=== PATIENT | male | born 1955 | race Caucasian/White ===

== ENCOUNTER 2021-06-28 08:11 | Emergency (ER) | payer BC, OTHER, SELFPAY ==
[2021-06-28 08:21] VITALS: BP 140/79; PULSE 69; RESP 20; TEMP 37.3; O2SAT 99
--- NOTE | 2021-06-28 08:37 | ED.URI ---
HPI - URI/Sore Throat General Chief Complaint: Upper Respiratory Infection Stated Complaint: Cough/Headache Time Seen by Provider: 06/28/21 08:37 Source: patient, RN notes reviewed and old records reviewed Mode of arrival: ambulatory Limitations: no limitations History of Present Illness HPI Narrative: 66-year-old male who presents to [facility] with complaints of persistent cough, runny nose, eyes burning and sinus pressure since Sunday 6-7 days. Patient states that he does have history of seasonal allergies and takes daily Xyzal. He states that he got some Delsym for his cough which didn't help his cough at all. He reports that cough is constant and he feels like he has had some wheezing when he lays down at night, denies any acute dyspnea. He reports that he has had COVID vaccinations and did have Flu shot this year. states he did have COVID in March of 2020.He is concerned that when he tries to eat he coughs so hard that he hasn't been able to eat much.He denies any known fevers, chills or sweats, states that he has yellowish green sinus drainage and he is expectorating yellowish green phlegm. MD elicited complaint: cough, rhinorrhea, nasal congestion and sinus pain Related Data Home Medications Medication Instructions Recorded Confirmed levocetirizine [Xyzal] 5 mg PO DAILY 06/28/21 06/28/21 Allergies Allergy/AdvReac Type Severity Reaction Status Date / Time codeine AdvReac Intermediate Nausea and Verified 06/28/21 08:40 Vomiting ibuprofen AdvReac Intermediate Depression Verified 06/28/21 08:40 Review of Systems Review of Systems: CONSTITUTIONAL: Denies any known fever, chills, or sweats. EYES: Denies visual changes, redness, or discharge. ENT: Positive for rhinorrhea, congestion,no sore throat, or otalgia, sinus pressure CARDIOVASCULAR: Denies chest pain, palpitations, or edema. RESPIRATORY: positive for persistent cough no acute dyspnea. GASTROINTESTINAL: Denies abdominal pain, nausea, vomiting, or diarrhea. GENITOURINARY: Denies dysuria or hematuria. SKIN: Denies rash or itching. MUSCULOSKELETAL: Denies back pain, joint pain, or myalgia. NEUROLOGIC: Denies headache, numbness, or weakness. PSYCHIATRIC: Denies anxiety or depression. All systems reviewed & are unremarkable except as noted in HPI and below PMFSH Past Medical History Medical History (Updated 06/28/21 @ 23:14 by Bernadette Hess NP) COVID-30 March 2020 Hx of migraines Seasonal allergies Social History Social History (Updated 06/28/21 @ 08:49 by Bernadette Hess NP) Smoking status: Never smoker Substance use: never Living arrangements: with family Gender identity (if verbalized by the patient): Male Comments At time of signature, agree with nursing past medical, surgical, social and family history. There is no relevant family history pertinent to the presenting complaint Exam Narrative: GENERAL: Ill-appearing, well-nourished, and in no acute distress. HEAD: Normocephalic, atraumatic. EYES: PERRLA and EOMI. ENT: Nares red with swollen turbinates, yellowish rhinorrhea no epistaxis. Mucous membranes moist.TM's normal with dull light reflex, throat red with no lesions or exudates or tonsil swelling, post nasal drainage present. NECK: Supple.no lymphadenopathy CHEST: Clear to auscultation. No respiratory distress.QUIANA 99% on room air, harsh productive cough HEART: Regular rate and rhythm. No murmur heard. Normal peripheral pulses. ABDOMEN: Soft, nontender, nondistended, normal active bowel sounds. EXTREMITIES: Normal range of motion. No edema. SKIN: Warm, dry, no rash. NEURO: No focal deficits. Alert and oriented x3. Course Course Level of Care: Express Care Visit Vital Signs Vital signs: Vital Signs Temperature 37.3 C 06/28/21 08:21 Pulse Rate 69 06/28/21 08:21 Respiratory Rate 20 06/28/21 08:21 Blood Pressure 140/79 06/28/21 08:21 Pulse Oximetry 99 06/28/21 08:21 Temperature 37.3 C 06/28/21
== END 2021-06-28 08:57 | disposition home or self-care (01) ==
PROVIDERS: Emergency Provider Registered Nurse
DX: J32.9 Chronic sinusitis, unspecified (principal); R05.9 Cough, unspecified; Z86.16 Personal history of COVID-19
CPT/HCPCS: 99203; G0463

== ENCOUNTER 2021-09-29 15:33 | Emergency (ER) | payer BC, OTHER, SELFPAY ==
[2021-09-29 15:40] VITALS: BP 124/88; PULSE 65; RESP 20; TEMP 36.3; O2SAT 100
--- NOTE | 2021-09-29 16:28 | ED.URI ---
HPI - URI/Sore Throat General Chief Complaint: Upper Respiratory Infection Stated Complaint: sore throat/cough Time Seen by Provider: 09/29/21 16:28 History of Present Illness HPI Narrative: 66-year-old male presented for complaint of sore throat and cough which he endorses having for several years intermittently. States this pain is more severe over the last 3 weeks. He denies associated sinus congestion or drainage, shortness of breath, wheezing, nausea, vomiting, fevers or chills. Taking rcka-wju-tfjankh cough syrup. Took a home COVID test that was negative last night. Denies sick contacts. Follows with PCP and ENT for symptoms. Related Data Home Medications Medication Instructions Recorded Confirmed levocetirizine 5 mg tablet (Xyzal) 5 mg PO DAILY 06/28/21 09/29/21 Allergies Allergy/AdvReac Type Severity Reaction Status Date / Time codeine AdvReac Intermediate Nausea and Verified 09/29/21 15:55 Vomiting ibuprofen AdvReac Intermediate Depression Verified 09/29/21 15:55 Review of Systems Review of Systems: CONSTITUTIONAL: Denies body aches, fever, chills, or sweats. EYES: Denies visual changes, redness, or discharge. ENT: Denies rhinorrhea, congestion, or otalgia. CARDIOVASCULAR: Denies chest pain, palpitations, or edema. RESPIRATORY: Denies dyspnea. GASTROINTESTINAL: Denies abdominal pain, nausea, vomiting, or diarrhea. SKIN: Denies rash, itching, or wounds. MUSCULOSKELETAL: Denies back pain, joint pain, or myalgia. NEUROLOGIC: Denies headache PMFSH Past Medical History Medical History COVID-30 March 2020 Hx of migraines Seasonal allergies Social History Social History Smoking status: Never smoker Substance use: never Gender identity (if verbalized by the patient): Male Exam Narrative: GENERAL: well-appearing EYES: conjunctivae clear ENT: Mucous membranes moist. TMs pearly hernandez with normal light reflex bilaterally; no tragal tenderness. Oropharynx erythematous without lesions. Tonsils enlarged and without exudate. No drooling, no hoarseness, no trismus, uvula midline. NECK: Supple. No lymphadenopathy CHEST: Clear to auscultation, breath sounds equal. No respiratory distress, speaks in full sentences. HEART: Regular rate and rhythm. No murmur heard. SKIN: Warm, dry, no rash. NEURO: Alert and oriented x3. Course Course Emergency Course: Patient is aware of diagnosis, understands and agrees to treatment plan. Anticipatory guidance given. Patient agrees to follow-up as directed and is aware of reasons to seek care at the emergency department. Portions of this record may have been created with voice recognition software Level of Care: Express Care Visit Vital Signs Vital signs: Vital Signs Temperature 97.3 F L 09/29/21 15:40 Pulse Rate 65 09/29/21 15:40 Respiratory Rate 20 09/29/21 15:40 Blood Pressure 124/88 09/29/21 15:40 Pulse Oximetry 100 09/29/21 15:40 Oxygen Delivery Room Air 09/29/21 15:40 Temperature 97.3 F L 09/29/21 15:40 Pulse Rate 65 09/29/21 15:40 Respiratory Rate 20 09/29/21 15:40 Blood Pressure 124/88 09/29/21 15:40 Pulse Oximetry 100 09/29/21 15:40 Oxygen Delivery Room Air 09/29/21 15:40 MDM - URI/Sore Throat MDM Narrative Medical decision making narrative: Negative strep result reviewed with pt. Advise supportive treatments. Patient is appropriate for outpatient treatment and follow-up with established pcp and ENT. Differential Diagnosis Differential diagnosis: Likely upper respiratory infection, viral infection, pharyngitis and other (allergic rhinitis) Lab Data Labs: Strep Screen Presumptive Negative *(Reference Range: Negative)* Discharge Plan Discharge Clinical Impression: Pharyngitis Patient Disposition: Home, Self-C
== END 2021-09-29 16:46 | disposition home or self-care (01) ==
PROVIDERS: Emergency Provider Nurse Practitioner Family; PCP Internal Medicine
DX: J02.9 Acute pharyngitis, unspecified (principal); Z86.16 Personal history of COVID-19
CPT/HCPCS: 87081; 87880; 99213; G0463

== ENCOUNTER 2025-02-02 13:38 | Emergency (ER) | payer BC, MEDICARE, OTHER, SELFPAY ==
--- OUTSIDE RECORDS SUMMARY | 2009-07-16 08:40 | XMS_ITS | Continuity of Care Document ---
Author Organization [facility] Address [address] [address] [place] [address] Phone Care Team Providers Care Undercoater Name Role Phone PIERRE Higgins OD, Nicholas Unavailable Unavailab le Allergies, Adverse Reactions, Alerts Substance Reaction Status Criticality ibuprofen Active No Information Medications Medication Instructions Dosage Effective Dates (start - stop) Status Comments Advil Migraine 200 mg Cap take 1 capsule (200MG) by ORAL route every 6 hours as needed 200 MG - Active Procedures Procedure Date Comp eye examination, estab patient Determination of refractive state Advance Directives Directive Yes / No Effective Date File Name Resuscitation Not Answered N/A N/A Life Support Not Answered N/A N/A Intubation Not Answered N/A N/A Antibiotics Not Answered N/A N/A IV Fluid Support Not Answered N/A N/A Tube Feed Not Answered N/A N/A Other Directive N/A N/A WARNING:The information contained in this section is historical and is provided for information only and does not constitute a legal document or any assurance that the information is still accurate. Please verify the information with the bush of the legal document before using it for clinical purposes. Encounters Encounter Description Practice Location Reason(s) For Visit Diagnoses Date Provider Providers Copied on Encounter Eye [facility], [address] [address], [place], [place], [id number], [place] tel:[phone] [place] The patient is here for an ocular health exam. (chief complaint) EYE & VISION EXAMINATIONMYOPIA 7-201 0 Gisela Stokes. [address], [place], [place], [id number] , [place]. tel:[phone] Referring Provider: Kike Bartlett, [address], [place], [address] . tel:[phone] Family History Family Member Type Diagnosis Age At Onset Mother Problem (finding) Maternal history of rhea betes mellitus Payers Payer name Insurance type Covered republican ID Authoriza tion(s) PAL [employer] Retired [id number] Social History Type Description Quantity Date Captured Comments Alcohol Use Details No Caffeine Use Details coffee 2 cups/cans per day Tobacco Use Status No Information Smoking Status No Information Non-Smoking Tobacco Use Details : No Details Available : No Details Available Sex Male Chief Complaint And Reason For Visit From encounter dated '07/16/2009 14:40'. The patient is here for an ocular health exam. (chief complaint) Reason For Referral Reason For Referral No Information History Of Present Illness Encounter Date Complaint History Of Prese nt Illness No Information Functional Status Date Functional Assessmen t No Information Instructions Date Instruction Additional Infor curtis Myopia 367.1 Both ey es - Explained in detail, diagnosis with patient. New glasses and CL's Rx given today. Related to Myopia 367.1 Examination of eyes and vision V72.0 Both eyes - Counseled with pt on conditions. Related to Examination of eyes and vision V72.0 Assessments Type Assessment Date No Information Patient Care Teams Name Effective Dates (start - stop) Status Members No Information
--- OUTSIDE RECORDS SUMMARY | 2009-07-16 08:40 | XMS_ITS | Continuity of Care Document ---
Author Organization [facility] Address [address] [address] [place] [address] Phone Care Team Providers Care Assistant Finance Director Name Role Phone PIERRE Higgins OD, Nicholas [...] Date Provider Providers Copied on Encounter Eye [facility], [address] [address], [place], [place], [id number], [place] tel:[phone] [place] The patient is here for an ocular health exam. (chief complaint) EYE & VISION EXAMINATIONMYOPIA 7-201 0 Gisela Stokes. [address], [place], [place], [id number] , [place]. tel:[phone] Referring Provider: Kike Bartlett, [address], [place], [address] . tel:[phone] Family History Family Member Type Diagnosis Age At Onset Mother Problem (finding) Maternal history of rhea betes mellitus Payers Payer name Insurance type Covered green party ID Authoriza tion(s) PAL Prime Retired [id number] Social History Type Description Quantity Date Captured [...] No Information Instructions Date Instruction Additional Infor matluna Examination of eyes and vision V72.0 Both eyes - Counseled with pt on conditions. Related to Examination of eyes and vision V72.0 Myopia 367.1 Both ey es - Explained in detail, diagnosis with patient. New glasses and CL's Rx given today. Related to Myopia 367.1 Assessments Type Assessment Date No Information Patient Care Teams Name Effective Dates (start - stop) Status Members No Information
[2025-02-02 13:50] VITALS: BP 145/74; PULSE 83; RESP 20; TEMP 36.6; O2SAT 99
[2025-02-02 14:08] LABS: EDCOVIDSCREEN Negative (Negative); EDINFLUASCREEN Negative (Negative); EDINFLUBSCREEN Negative (Negative)
--- NOTE | 2025-02-02 14:18 | ED_ITS ---
HPI - URI/Sore Throat General Chief Complaint: Upper Respiratory Infection Stated Complaint: cold / sinus symptoms Time Seen by Provider: 02/02/25 14:05 Source: patient and RN notes reviewed Mode of arrival: ambulatory Limitations: no limitations History of Present Illness HPI Narrative: 69-year-old male patient presents Express Care complaining of upper respiratory symptoms or proximally 3 days. Patient says started with sneezing 3 days ago however it has since gotten worse. Patient reports a dry hacking nonproductive cough, congestion, runny nose, sore throat, body aches. Patient denies any chest pain, difficulty breathing, wheezing, nausea, vomiting, diarrhea, abdominal pain, any other upper respiratory symptoms, any other symptoms. Patient has been taking gora-pud-qjsyazs antihistamines no relief. Patient reports a history of chronic cough and high cholesterol. Related Data Home Medications ?Medication ?Instructions ?Recorded ?Confirmed ?Last Taken ?Type levocetirizine 5 mg tablet (Xyzal) 5 mg PO DAILY 06/2809/29/21 Unknown History atorvastatin 20 mg tablet mg 02/02/25 Unknown History tadalafil 5 mg tablet mg 02/02/25 Unknown History Allergies Allergy/AdvReac Type Severity Reaction Status Date / Time codeine AdvReac Intermediate Nausea and Verified 02/02/25 13:56 Vomiting ibuprofen AdvReac Intermediate Depression Verified 02/02/25 13:56 Review of Systems Review of Systems: CONSTITUTIONAL: Denies fever, chills, or sweats. Positive body aches. EYES: Denies visual changes, redness, or discharge. ENT: Denies otalgia. Positive for rhinorrhea, congestion, sore throat, sneezi ng. CARDIOVASCULAR: Denies chest pain, palpitations, or edema. RESPIRATORY: Bones for cough. Negative wheezing or difficulty breathing, or Dyspnea. GASTROINTESTINAL: Denies abdominal pain, nausea, vomiting, or diarrhea. GENITOURINARY: Denies dysuria or hematuria. SKIN: Denies rash or itching. MUSCULOSKELETAL: Denies back pain, joint pain, or myalgia. NEUROLOGIC: Denies headache, numbness, or weakness. PSYCHIATRIC: Denies anxiety or depression. All other systems reviewed are negative, except as documented in HPI. [facility] Past Medical History Medical History Hx of migraines COVID-30 March 2020 Seasonal allergies Social History Social History Smoking status: Never smoker Substance use: never Living arrangements: with family Gender identity (if verbalized by the patient): Male Comments At the time of my signature, I reviewed and agree with the nursing past medical, surgical, social, and family history. There is no relevant family history pertinent to the patient complaint. Exam Narrative: GENERAL: This is a well-nourished, well-developed adult, in no apparent distress. They are non ill-appearing, nontoxic appearing. HEAD: normocephalic, atraumatic. EYES: Sclera clear/white. Conjunctiva normal. Vision is grossly intact. Ext raocular movements intact EARS: External ears normal, auditory canals clear and without drainage, TMs normal without perforation. Hearing grossly intact. NOSE: External nose normal with no obvious nasal discharge, nasal turbinates erythematous, no exudate. No rhinorrhea. THROAT: Mucous membranes moist, posterior pharynx erythematous. Uvula midline. Postnasal drip present. NECK: Neck supple, non-tender without lymphadenopathy, masses or thyromegaly. CARDIOVASCULAR: Regular rate and rhythm without murmurs, gallops, or rubs. RESPIRATORY: Clear to auscultation. Breath sounds equal bilaterally. No wheezes, rales, or rhonchi. Respiratory rate normal, respiratory effort nonlabored, no respiratory distress. Patient able to speak in full sentences. SKIN: warm, Dry, intact with no suspicious lesions or rash, good texture and turgor. NEURO: awake, alert, and oriented to person, place and time. There were no obvious focal neurologic abnormalities. EXTREMITIES: No joint tenderness, effusion, or edema noted. BACK: Nontender without deformity. No CVA tenderness. Course Course Emergency Course: Portions of this record may have been created with voice recognition software Level of Care: Express Care Visit Vital Signs Vital signs: Vital Signs Temperature 97.9 F 02/02/25 13:50 Pulse Rate 83 02/02/25 13:50 Respiratory Rate 20 02/02/25 13:50 Blood Pressure 145/74 H 02/02/25 13:50 Pulse Oximetry 99 02/02/25 13:50 Oxygen Delivery Room Air 02/02/25 13:50 Temperature 97.9 F 02/02/25 13:50 Pulse Rate 83 02/02/25 13:50 Respiratory Rate 20 02/02/25 13:50 Blood Pressure 145/74 H 02/02/25 13:50 Pulse Oximetry 99 02/02/25 13:50 Oxygen Delivery Room Air 02/02/25 13:50 Reviewed MDM - URI/Sore Throat MDM Narrative Medical decision making narrative: Rapid COVID, flu are negative. Symptoms likely viral etiology. Given patient's severity of symptoms and cough will give him a course of prednisone. Also send home with benzonatate tablets. Patient nontoxic appearing, vital signs hemodynamically stable, no apparent distress. Lung sounds clear auscultation. Discussed physical exam findings. Advised supportive measures and signs/symptoms to go to the ER. Pt is appropriate for outpt treatment and f/u. Differential Diagnosis Differential diagnosis: Likely upper respiratory infection, sinusitis, viral infection and bronchitis Lab Data Attestation: I reviewed the patient's lab results. Labs: Lab Results 02/02/25 Range/Units 13:52 POC Influenza A Ag Negative (Negative) POC Influenza B Ag Negative (Negative) POC SARS CoV-2 Ag Negative (Negative) Critical Care Time Critical Care Time Critical Care Time: No Discharge Plan Discharge Clinical Impression: Bronchitis Patient Disposition: Home Condition: Stable Instructions: Acute Bronchitis (ED) Additional Instructions: Your rapid COVID and flu were negative today. Viral illness may last between 7-10 days; antibiotics do not cure viral illness and are NOT recommended at this time. Take your antihistamine as directed. Take prednisone as directed. Take benzonatate tablets as needed for cough. Also, recommend symptomatic treatment includes: rest, fluids, and increase humidity of the air at home. Motrin or Tylenol as needed for pain or fevers. Follow instructions on the bottle. Please schedule a follow-up visit with your personal physician for further evaluation and treatment within 3-5days. If you Developed worsening symptoms, breathing problems, wheezing, unable to talk in full sentences, chest pains, uncontrolled fevers, weakness, or any serious concerns please go to the ER immediately. Patient Language: Hong Konger Prescriptions: New benzonatate 200 mg capsule 200 mg PO BID PRN (Reason: cough) Qty: 20 0RF prednisone 20 mg tablet 40 mg PO DAILY 5 Days Qty: 10 0RF No Action levocetirizine [Xyzal] 5 mg Tablet 5 mg PO DAILY atorvastatin 20 mg tablet tadalafil 5 mg tablet Follow-up/Referrals: Sasha,Nicole Wallace APRN [Primary Care Provider, Unknown] Stand Alone Forms: Work/School Release IP Time of Disposition: 14:16
--- OUTSIDE RECORDS SUMMARY | 2025-02-02 16:06 | XMS_ITS | Encounter Summary ---
Author Organization [facility] Address [address] [place] [id number] Phone Care Team Providers Care Four Slide Operator Name Role Phone SmithLouie TELECOMMUNICATION OPERATOR, OUTSOLE SCHEDULER Unavailable [phone] Nicole Baez TELECOMMUNICATION OPERATOR, OUTSOLE SCHEDULER Primary Care Provider Alexia Turcios TELECOMMUNICATION OPERATOR, OUTSOLE SCHEDULER Unavailable Doc Andrew MD Unavailable [phone] Yuan Jaramillo MD Unavailable [phone] Reason for Referral * Radiology Services (Routine) - Closed Specialty Diagnoses / Procedures Referred By Yakov pandya Referred To Contact Radiology Diagnoses Prostate cancer Procedures PET CT TUMOR IMAGING, PROSTATE, SKULL BASE TO MID THIGH Doc Andrew MD [address] [address] Phone: tel: fax: Referral ID Status Reason Start Date Expiration Date Visits Re quested Visits Authorized [id number] Closed 10/23/2023 1 1 Encounter Details Date Type Department Care Team (Late st Contact Info) Description 10/23/2023 Telephone [facility] [address] [place] [address] Doc Andrew MD [address] [address] Social History Tobacco Use Types Packs/Day Years Used Date Smoking Tobacco: Never Smokeless Tobacco: Never Alcohol Use Standard Drinks/Week Comments Never 0 (1 standard drink = 0.6 oz pur e alcohol) Sex and Gender Information Value Date Recorded Sex Assigned at Not on file Legal Sex Male 8:06 PM CDT Gender Identity Not on file Sexual Orientation Not on file documented as of this encounter Miscellaneous Notes * Telephone Encounter - Hilary Garcia - 10/26/2023 10:29 AM CDT Pt scheduled for pet scan on 10/30 * Telephone Encounter - Hilary Garcia - 10/25/2023 9:21 AM CDT Just want to verify, He needs a PSMA pet scan? * Telephone Encounter - Doc Andrew MD - 10/23/2023 8:12 AM CDT I called the patient today. His diarrhea is improving. I also reviewed his pathology which showed [place] 4 + 4, 4+4, 3+3 cancer of the prostate. He was recovered well after the biopsy. No fevers. Additionally we will hold any antibiotics. However he does not need a PSMA PET scan given primary [place] 4 disease. Team-please set up PSMA PET scan. I have placed the order for this. documented in this encounter Plan of Treatment Not on file documented as of this encounter Results * PET CT TUMOR IMAGING, PROSTATE, SKULL BASE TO MID THIGH (11/01/2023 3:20 PM CDT) Anatomical Region Laterality Modality BODY N/A Positron Emissio n Tomography (PET) 11/02/2023 12:0 1 PM CDT Impressions 11/02/2023 12:04 PM CDT IMPRESSION: Focal uptake along the right posterior mid prostate gland may represent the primary malignancy. No lymph nodes in the abdomen or pelvis with increased PSMA uptake. No aggressive appearing osseous lesions. Noncalcified 5 mm nodule in the central left upper lobe shows no abnormal uptake. Attention on follow-up imaging is recommended. Cholelithiasis. Narrative 11/02/2023 12:04 PM CDT EXAM DESCRIPTION: PET CT TUMOR IMAGING, PROSTATE, SKULL BASE TO MID THIGH RADIOPHARMACEUTICAL: 10 mCi F-18 prostate specific membrane antigen (PSMA) via a right antecubital vein IV site REASON FOR STUDY: Prostate cancer. Elevated PSA. TECHNIQUE: After intravenous administration of PSMA, noncontrast CT images were obtained for attenuation correction and for fusion with emission PET images to allow for anatomical localization of PET findings. Emission PET images were then obtained. The reported standardized uptake value maximum (SUVmax) values have been normalized to body weight (SUVbw). The area imaged spanned the region from the skull base to the proximal thighs. The time from injection to start of imaging was 62 minutes. COMPARISON: None FINDINGS: For reference, the maximum SUV of the ascending thoracic aorta is 1.9 . The maximum SUV of the liver is 9.3 . Head: Normal uptake is seen in the included portion of the brain. Neck: Physiologic uptake in the salivary glands. No suspicious cervical lymphadenopathy. Chest: No abnormal lymphadenopathy in the axillae, mediastinum, or shon. Noncalcified 5 mm nodule in the central left upper lobe shows no abnormal uptake. Heart size is within normal limits. Trace coronary artery calcification. Trace pericardial effusion. No pleural effusion. Abdomen and Pelvis: No abnormal focal liver lesion. Gallstone within the gallbladder. The spleen is normal. Normal noncontrast appearance of the pancreas. The adrenal glands are normal. Normal genitourinary activity. Physiologic uptake within the proximal small bowel. Atherosclerotic calcification of the abdominal aorta without aneurysm. Focal uptake along the right posterior mid prostate gland with an SUV of 4.5. No abnormal scratch that no lymph nodes in the abdomen or pelvis with increased PSMA uptake. Bones: No acute or aggressive appearing osseous lesions. THIS IS AN ELECTRONICALLY VERIFIED FINAL REPORT 11/02/2023 12:01 PM - Electronically signed by Nino Noyola M.D. LB: NAN Report ID: [id number] Reading Location: [id number] Procedure Note Nino Noyola MD - 11/02/2023 EXAM DESCRIPTION: PET CT TUMOR IMAGING, PROSTATE, SKULL BASE TO MID THIGH RADIOPHARMACEUTICAL: 10 mCi F-18 prostate specific membrane antigen (PSMA) via a right antecubital vein IV site REASON FOR STUDY: Prostate cancer. Elevated PSA. TECHNIQUE: After intravenous administration of PSMA, noncontrast CT images were obtained for attenuation correction and for fusion with emission PET images to allow for anatomical localization of PET findings. Emission PET images were then obtained. The reported standardized uptake value maximum (SUVmax) values have been normalized to body weight (SUVbw). The area imaged spanned the region from the skull base to the proximal thighs. The time from injection to start of imaging was 62 minutes. COMPARISON: None FINDINGS: For reference, the maximum SUV of the ascending thoracic aorta is 1.9 . The maximum SUV of the liver is 9.3 . Head: Normal uptake is seen in the included portion of the brain. Neck: Physiologic uptake in the salivary glands. No suspicious cervical lymphadenopathy. Chest: No abnormal lymphadenopathy in the axillae, mediastinum, or shon. Noncalcified 5 mm nodule in the central left upper lobe shows no abnormal uptake. Heart size is within normal limits. Trace coronary artery calcification. Trace pericardial effusion. No pleural effusion. Abdomen and Pelvis: No abnormal focal liver lesion. Gallstone within the gallbladder. The spleen is normal. Normal noncontrast appearance of the pancreas. The adrenal glands are normal. Normal genitourinary activity. Physiologic uptake within the proximal small bowel. Atherosclerotic calcification of the abdominal aorta without aneurysm. Focal uptake along the right posterior mid prostate gland with an SUV of 4.5. No abnormal scratch that no lymph nodes in the abdomen or pelvis with increased PSMA uptake. Bones: No acute or aggressive appearing osseous lesions. THIS IS AN ELECTRONICALLY VERIFIED FINAL REPORT 11/02/2023 12:01 PM - Electronically signed by Nino Noyola M.D. LB: NAN Report ID: [id number] Reading Location: [id number] IMPRESSION: Focal uptake along the right posterior mid prostate gland may represent the primary malignancy. No lymph nodes in the abdomen or pelvis with increased PSMA uptake. No aggressive appearing osseous lesions. Noncalcified 5 mm nodule in the central left upper lobe shows no abnormal uptake. Attention on follow-up imaging is recommended. Cholelithiasis. Doc Gunter MD IMG PET Final Result documented in this encounter Visit Diagnoses Diagnosis Prostate cancer- Primary Malignant neoplasm of prostate Prostate cancer Malignant neoplasm of prostate documented in this encounter Care Teams Four Slide Operator Relationship Specialty Start Date End Date Nicole Baez, TELECOMMUNICATION OPERATOR, OUTSOLE SCHEDULER [address] [place] [address] PCP - General Advanced Practice Nurse 07/06/23 Louie Smith TELECOMMUNICATION OPERATOR, OUTSOLE SCHEDULER [address] [place] [address] Nurse Practitioner Advanced Practice Nurse 05/15/23 Alexia Turcios TELECOMMUNICATION OPERATOR, OUTSOLE SCHEDULER [address] [place] [address] Nurse Practitioner Advanced Practice Nurse 08/03/23 Doc Andrew MD #[address] [address] Consulting Physician Urology 10/19/23 Yuan Jaramillo MD [address] [place] [address] Consulting Physician Radiation Oncology 12/19/23 documented as of this encounter
--- OUTSIDE RECORDS SUMMARY | 2025-02-02 16:06 | XMS_ITS | Clinical Summary ---
Author Organization [facility] Address [address] [place] [address] Phone Care Team Providers Care Synthetic Chemist Name Role Phone SmithLouie WELLNESS PROGRAM MANAGER, DRAG CAR RACER Unavailable [phone] Nicole Baez WELLNESS PROGRAM MANAGER, DRAG CAR RACER Primary Care Provider Alexia Turcios WELLNESS PROGRAM MANAGER, DRAG CAR RACER Unavailable Doc Andrew MD Unavailable [phone] Yuan Jaramillo MD Unavailable [phone] Allergies Active Allergy Reactions Criticality Noted Date Comments Codeine Other (see Comments) 05/15/2023 Medications Levocetirizine Dihydrochloride 5 MG Tablet daily. Active famotidine (PEPCID) 20 MG Tablet Active fluticasone (FLONASE) 50 MCG/ACT Suspension as needed. Active raNITIdine HCl (ZANTAC PO) Take by mouth. Act roque Multiple Vitamin (MULTI-VITAMIN PO) Take by mouth. Active omeprazole (PriLOSEC) 40 MG CAPSULE DELAYED RELEASEIndications: Gastroesophageal reflux disease, unspecified whether esophagitis present Take 1 Capsule by mouth daily. 90 Capsule 08/03/19 Active Additional Information Patient not taking.Reported on 02/29/2024 Colace 100 MG Capsule Take 1 capsule every day by oral route as needed, for constipation. 02/19/20 Active Tadalafil 5 MG Tablet Take 1 Tablet by mouth daily. 90 Tablet 3 02/29/20 Active Active Problems Problem Noted Date Diagnosed Date Prostate cancer 11/14/2023 Benign prostatic hyperplasia 08/03/2023 Chronic back pain 08/03/2023 Diarrhea 08/03/2023 Fatigue 08/03/2023 Forgetfulness 08/03/2023 Nasal congestion 08/03/2023 Gastroesophageal reflux disease without esophagi tis 02/19/2023 Allergic rhinitis 04/06/2019 History of migraine 03/19/2016 Seasonal allergies 03/19/2016 Immunizations Immunization Administration Dates Next Due Hepatitis A Vaccine 01/11/1998,02/09/1997 Influenza Vaccine, MDCK,quad rivalent, pres free 12/19/2018 Influenza Vaccine, Quadrivalent, PF 04/09/2021,1 ,12/30/2017 Influenza Vaccine,unspecified Formulation 2015 Influenza Virus Vaccine, Whole Virus 01/18/1999, 01/11/1998,02/09/1997 Influenza, High-dose, Quadrivalent 02/20/2023 Influenza, Injectable, Quadrivalent 12/26/2021 Influenza, Seasonal, Injectable, Undefined 01/04 Pneumococcal Vaccine - 13 Valent 03/20/2016 Pneumococcal conjugate PCV20 , polysaccharide [id number] conjugate, adjuvant, PF 02/20/2023 Polio Vaccine,unspecified Formulation 11/30/1976 TD VACCINE 06/10/1994,05/14/1987 TDAP Vaccine 06/25/2023 Tuberculin Skin Test; Ami ed Protein Derivative Solutiol 02/08/1998 Typhoid Vaccine 01/18/1999 Typhoid, Parenteral, AKD ([place] ) 997 Yellow Fever Vaccine 07/02/1998,04/10/1988 Family History Medical History Relation Name Comments Heart Attack Father Diabetes Mother Cancer Sister Relation Name Status Comments Father Mother Sister Social History Tobacco Use Types Packs/Day Years Used Date Smoking Tobacco: Never Smokeless Tobacco: Never Tobacco Cessation:Counseling Given: Not Answered Alcohol Use Standard Drinks/Week Comments Never 0 (1 standard drink = 0.6 oz pur e alcohol) Sexually Active Control Partners Comments Not Currently Sex and Gender Information Value Date Recorded Sex Assigned at Not on file Legal Sex Male 8:06 PM CDT Gender Identity Not on file Sexual Orientation Not on file Last Filed Vital Signs Vital Sign Reading Time Taken Comments Blood Pressure 140/68 04/25/2024 12:[address] Pulse 69 04/25/2024 12:[address] Temperature 36.9 C (98.5 F) 04/18/2024 5:[address] Respiratory Rate 20 04/25/2024 12:[address] Oxygen Saturation 99% 04/25/2024 12:[address] Inhaled Oxygen Concentration - - Weight 93.9 kg (207 lb) 04/25/2024 12:[address] Height 182.9 cm (6') 04/25/2024 12:[address] Body Mass Index 28.07 04/25/2024 12:[address] Plan of Treatment Health Maintenance Due Date Last Done Comments Hepatitis C Virus (HCV) Screening 1955 Varicella Immunization (1 of 2 - 13+ 2-dose series) 1970 Zoster Immunization (1 of 2) 1976 Cologuard 2002 Colonoscopy 2002 Colorectal Cancer Screening 2002 Immunochemical Fecal Occult Blood 2002 Medicare Initial AWV [id number] 03/12/2023 Influenza Immunization (#1) 11/10/202412/10, 02/20/2023, 12/26/2021, Additional history exists SARS-COV-2 Immunization (2024- season) 2024 02/23/2023, 04/09/2021, 07/30/2020, Additional history exists Respiratory Syncytial Virus (RSV) Immunization (Adult) (1 - 1-dose 75+ series) 2032 Td Immunization Every 10 Years (Adults With 1 Tdap) 06/24/2033 06/25/2023, 06/10/1994, 05/14/1987 Pneumococcal Immunization (50+ years) Completed 02/20/2023, 03/20/2016 DTaP/Tdap/Td Immunization Discontinued 2023, 06/10/1994, 05/14/1987 TdaP Immunization Discontinued 06/25/2023 PSA Discussion Completed 02/29/2024, 07/11, 05/15/2023 Hepatitis B Immunization Aged Out No longer eligible based on patient's age to complete this topic Human Papillomavirus (HPV) Immunization Aged Out No longer eligible based on patient's age to complete this topic Meningococcal Immunization (ACWY) Aged Out No longer eligible based on patient's age to complete this topic Rotavirus Immunization Aged Out No lo nger eligible based on patient's age to complete this topic Procedures Procedure Name Priority Date/Time Associated Diagnosis Comments PSA DIAGNOSTIC,TOTAL Routine 02/29/2024 2:[address] Prostate cancer (HCC) from Last 3 Months or Most Recently Relevant to Health Maintenance Results * PSA DIAGNOSTIC,TOTAL (02/29/2024 2:[address]) PSA, TOTAL (PROSTATIC SPECIFIC ANTIGEN) <0.10 <4.00 ng/mL 02/29/2024 3:[address] [facility] Blood Venipuncture / Unknown 02/29/2024 2:[address] 02/29/2024 2:[address] Narrative [facility] - 02/29/2024 3:[address] PSA NOTE: The PSA value should be used in conjunction with information available from clinical evaluation and other diagnostic procedures. The ALINITY Total PSA assay is a Chemiluminescent Microparticle Immunoassay (CMIA) for the quantitative determination of total PSA (both free PSA and PSA complexed to [id number]) in human serum. Total PSA values obtained with different assay methods, including Guy PSA assays, cannot be used interchangeably. us Doc Gunter MD CHEMISTRY ORDERABLES Final Res ult [facility] [address] [place] [address] from Last 3 Months or Most Recently Relevant to Health Maintenance Insurance [id number] MEDICARE [facility] Care Teams Synthetic Chemist Relationship Specialty Start Date End Date Nicole Baez APRN, DRAG CAR RACER [address] [place] [address] PCP - General Advanced Practice Nurse 07/06/23 Louie Smith APRN, DRAG CAR RACER [address] [place] [address] Nurse Practitioner Advanced Practice Nurse 05/15/23 Alexia Turcios APRN, DRAG CAR RACER [address] [place] [address] Nurse Practitioner Advanced Practice Nurse 08/03/23 Doc Andrew MD #[address] [address] Consulting Physician Urology 10/19/23 Yuan Jaramillo MD [address] [place] [address] Consulting Physician Radiation Oncology 12/19/23
== END 2025-02-02 14:22 | disposition home or self-care (01) ==
PROVIDERS: PCP Nurse Practitioner Family
DX: J40 Bronchitis, not specified as acute or chronic (principal); Z20.822 Contact with and (suspected) exposure to COVID-19; E78.00 Pure hypercholesterolemia, unspecified; Z86.16 Personal history of COVID-19
CPT/HCPCS: 87426; 87804; 99213; G0463